=== PATIENT | male | born 1985 | race Caucasian/White ===

== ENCOUNTER 2018-12-23 21:36 | Emergency (ER) | payer BC, MEDICAID ==
--- NOTE | 2018-12-23 22:13 | ED Physician Documentation ---
PD HPI CHEST PAIN - Stated complaint Stated Complaint: SOA/UPPER CHEST PX - Chief complaint Chief Complaint: Resp - History obtained from History obtained from: Patient - History of Present Illness Timing - onset: How many weeks ago (3) Timing - onset during: Light activity Timing - duration: Weeks (has had left lower rib pain without obvious injury th at onset intermittently and has become more continual. Localized to left lower rib and cartilage in the midaxillary line.) Timing - details: Gradual onset, Still present, Waxing and waning Quality: Aching, Sharp. No: Pressure, Tightness Location: Left chest Radiation: No: Jaw, Neck, Back Improved by: Rest Worsened by: Inspiration, Movement, Palpation Associated symptoms: No: Shortness of air, General Weakness Similar symptoms before: Has not had sx before Recently seen: Not recently seen Review of Systems Constitutional: denies: Fever, Chills, Myalgias Eyes: denies: Loss of vision Throat: denies: Sore throat GI: denies: Abdominal Pain, Nausea, Vomiting, Diarrhea PD PAST MEDICAL HISTORY - Past Medical History Past Medical History: No - Past Surgical History Past Surgical History: Yes Ortho: Other - Present Medications Home Medications: Ambulatory Orders Medication Instructions Recorded Confirmed Ibuprofen 600 mg PO PRN PRN 12/23/18 12/23/18 - Allergies Allergies/Adverse Reactions: Allergies Allergy/AdvReac Type Severity Reaction Status Date / Time No Known Drug Allergies Allergy Verified 12/23/18 21:42 - Social History Does the pt smoke?: No Smoking Status: Never smoker Does the pt drink ETOH?: No Does the pt have substance abuse?: No - Immunizations Immunizations are current?: Yes PD ED PE NORMAL - Vitals Vital signs reviewed: Yes - General General: Alert and oriented X 3, No acute distress, Well developed/nourished - HEENT HEENT: Pharynx benign - Neck Neck: Supple, no meningeal sign, No bony TTP, No adenopathy - Cardiac Cardiac: RRR, No murmur - Respiratory Respiratory: Clear bilaterally, Other (there is focal tenderness at left costal margin. No redness nor scars on exam. CXR is normal. ) - Abdomen Abdomen: Soft, Non tender - Back Back: No spinal TTP - Derm Derm: Normal color, Warm and dry Results - Vitals Vitals: Vital Signs - 24 hr 12/23/18 22:56 Temperature 36.4 C L Heart Rate 98 Respiratory 20 Rate Blood Pressure 139/86 H O2 Saturation 94 Oxygen O2 Source Room air - Rads (name of study) chest xray Radiology: Prelim report reviewed, EMP read contemporaneously (no acute processed.) PD MEDICAL DECISION MAKING - ED course Complexity details: reviewed results, re-evaluated patient, considered differential, d/w patient Departure - Departure Disposition: 01 Home, Self Care Clinical Impression: Acute costochondritis Condition: Stable Record reviewed to determine appropriate education?: Yes Instructions: ED Chest Pain Costochondritis Comments: This seems like some inflammation and likely will separation of the junction of the lowest rib with the cartilage. This typically will heal up without particular intervention such as rib belts or taping. However continue some anti-inflammatories such as the ibuprofen to 3 times daily. Add Tylenol if needed for pains. Recheck if not improved over the next several days or so. Discharge Date/Time: 12/23/18 22:58
--- NOTE | 2018-12-23 22:20 | XRAY Report ---
Reason: cough and pain with deep breath Procedure Date: 12/23/2018 Accession Number: [id number] / [id number] Procedure: XR - Chest 2 View X-Ray CPT Code: 38870 FULL RESULT: EXAM: CHEST RADIOGRAPHY EXAM DATE: 12/23/2018 10:14 PM. CLINICAL HISTORY: Cough and pain with deep breath. COMPARISON: None. TECHNIQUE: 2 views. FINDINGS: Lungs/Pleura: No alveolar consolidation or pleural effusion seen. No pneumothorax. Mediastinum: Heart and mediastinal contours are unremarkable. Other: None. IMPRESSION: 1. No acute abnormality seen in the chest. RADIA
[2018-12-23] MEDS ORDERED: TRIAMCINOLONE 40 MG/ML VIAL IM STA (22:35)
[2018-12-23] MEDS ORDERED: HYDROcod/ACETAM 5/325 MG TABLET PO STA (22:35)
[2018-12-23] MEDS ORDERED: NAPROXEN 250 MG TABLET PO STA (22:36)
[2018-12-23 22:57] VITALS: BP 139/86
== END 2018-12-23 22:58 | disposition home or self-care (01) ==
LOC: ED 21:36
DX: M94.0 Chondrocostal junction syndrome [Tietze] (principal)
CPT/HCPCS: 71046; 99283; A9270

== ENCOUNTER 2024-02-19 11:43 | Emergency (ER) | payer BC ==
--- NOTE | 2024-02-19 11:54 | ED Physician Documentation ---
PD HPI UPPER EXT INJURY - Stated complaint Stated Complaint: LT THUMP LAC - Chief complaint Chief Complaint: Laceration - History obtained from History obtained from: Patient - History of Present Illness Location: Left, Finger (dorsum thumb) Type of injury: Laceration (he was using knife and it slipped and cut dorsum thumb at IP area. HUrts for ROM but not weakness.) Timing - onset: Today Timing - details: Abrupt onset Improved by: Rest Worsened by: Moving Associated symptoms: No: Weakness, Numbness Recently seen: Not recently seen PD PAST MEDICAL HISTORY - Past Medical History Past Medical History: Yes Cardiovascular: High cholesterol Respiratory: None Neuro: None Endocrine/Autoimmune: Type 2 diabetes GI: None : None HEENT: None Psych: None Musculoskeletal: None Derm: None - Past Surgical History Past Surgical History: Yes Ortho: Other - Present Medications Home Medications: Ambulatory Orders Medication Instructions Recorded Confirmed Rosuvastatin Calcium 20 mg PO DAILY 02/19/24 02/19/24 Tirzepatide [Mounjaro] 7.5 mg SQ Q7D 02/19/24 02/19/24 - Allergies Allergies/Adverse Reactions: Allergies Allergy/AdvReac Type Severity Reaction Status Date / Time No Known Drug Allergies Allergy Verified 02/19/24 11:47 - Social History Does the pt smoke?: No Smoking Status: Never smoker Does the pt drink ETOH?: No Does the pt have substance abuse?: No - Immunizations Immunizations are current?: No Immunizations: Other immun not current - POLST Patient has POLST: No PD ED PE NORMAL - Vitals Vital signs reviewed: Yes - General General: Alert and oriented X 3, No acute distress, Well developed/nourished - Derm Derm: Normal color, Warm and dry - Extremities Extremities: Other (left thumb with 2 cm lac to dorsum at IP area. To subcut tissue but not involving tenon. He can extend against resistance but hurts. No FB. Mild ongoing bleeding from site. ) - Neuro Neuro: Alert and oriented X 3, No motor deficit, No sensory deficit Results - Vitals Vitals: Vital Signs - 24 hr 02/19/24 02/19/24 11:48 13:01 Temperature 36.7 C 37.0 C Heart Rate 81 81 Respiratory 16 16 Rate Blood Pressure 133/93 H 128/88 H O2 Saturation 99 99 Oxygen O2 Source Room air Procedures - Laceration (location) left thumb dorsumq Length in cm: 2 Wound type: Linear, Into subcut fat, Clean Neurovascular status: Sensory intact, Motor intact, Vascular intact Tendon involvement: Tendon intact Anesthesia: Lidocaine 1% with epi Wound preparation: Irrigated copiously NS, Wound explored, To the base Skin layer closure: Nylon, Running, Size #-0 - enter number (4), Sutures - enter # (6) Other: Patient tolerated well, No complications, Neurovascular intact, Dressing applied, Tetanus UTD Departure - Departure Disposition: 01 Home, Self Care Clinical Impression: Thumb laceration Condition: Stable Record reviewed to determine appropriate education?: Yes Instructions: ED Laceration Hand Follow-Up: CLAIRE STALLINGS DO [Primary Care Provider] - Comments: It is okay to wash and shower. Clean off the wound twice a day with soap and water, or peroxide and water. Apply some antibiotic ointment to it to keep it moist. Also to watch for signs of infection such as purulence, redness or increasing pain. Return to your primary care or the ER at the specified time for suture removal. Suture removal 8 to 10 days. Tylenol ibuprofen as needed for pains. Light use of the thumb for the first 2 to 3 days to the wound seals over a bit and then progress to normal activity as tolerated. Forms: PCP List
[2024-02-19 11:58] VITALS: O2SAT 99
[2024-02-19] MEDS: LIDOCAINE 1%-EPI 1:100000 20 ML MDV SUBQ STA (12:18)
[2024-02-19 13:14] VITALS: BP 128/88
== END 2024-02-19 13:01 | disposition home or self-care (01) ==
LOC: ED 11:43 → SUPCPDRO 11:43 → ED 13:01
DX: S61.012A Laceration without foreign body of left thumb without damage to nail, initial encounter (principal); W26.0XXA Contact with knife, initial encounter; E78.00 Pure hypercholesterolemia, unspecified; E11.9 Type 2 diabetes mellitus without complications
CPT/HCPCS: 12001; 99283